=== PATIENT | female | born 1995 | race Caucasian/White ===

== ENCOUNTER 2019-08-01 07:00 | Emergency (ER) | payer SELFPAY ==
[2019-08-01] MEDS ORDERED: Ketorolac Tromethamine 30 MG/ML VIAL ONE (07:41)
[2019-08-01] MEDS ORDERED: Lidocaine-Prilocaine 2.5% Cream 5 GM TUBE TOP SCH (08:00)
[2019-08-01] MEDS ORDERED: Lidocaine 1% (PF) 30 ML VIAL ONE (08:34)
--- NOTE | 2019-08-01 09:00 | RAD ---
ABDOMEN 1 VIEW: Date: 08/01/2019 HISTORY: Constipation due to painful hemorrhoids. COMPARISON: 07/20/2011. FINDINGS: There is a considerable amount of solid fecal material throughout the colon, increasing from the prio r study. No overt calculus. No large or small bowel obstruction. IMPRESSION: Fairly extensive solid fecal material throughout the colon, showing progressive fecal loading when co mpared to the prior 07/20/2011 study. POS: SHAYLA
[2019-08-01] MEDS ORDERED: Lorazepam 1 MG TAB ONE (10:11)
== END 2019-08-01 10:20 | disposition home or self-care (01) ==
LOC: ERS 07:00
DX: K64.5 Perianal venous thrombosis (principal); F17.210 Nicotine dependence, cigarettes, uncomplicated; F41.9 Anxiety disorder, unspecified; Z87.442 Personal history of urinary calculi
CPT/HCPCS: 46083; 74018; 96361; 96374; J1885; J2001